=== PATIENT | male | born 1955 | race Two or more races ===

== ENCOUNTER 2018-11-14 14:25 | Emergency (ER) | payer OTHER ==
[~2018-11-14] VITALS: Ht 170.2 cm; Wt 99.8 kg
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
[2018-11-14] MEDS ORDERED: Methocarbamol 500mg tab ORAL ONE (15:30)
[2018-11-14] MEDS ORDERED: Ketorolac 30mg Inj IM ONE (15:30)
[2018-11-14 15:33] VITALS: BP 136/90
[2018-11-14] MEDS ORDERED: ROBAXIN500 MG PO (17:09)
[2018-11-14] MEDS ORDERED: LIDOCAINE700 M1 TP (17:09)
[2018-11-14] MEDS ORDERED: IBUPROFEN600 MG ORAL (17:09)
[2018-11-14 17:12] VITALS: BP 132/87
--- NOTE | 2018-11-14 17:12 | NUR ---
ER DISCHARGE NOTE: Patient is cleared to be discharged per ERMD, pt is aox4, on room air, with stable vital signs. pt was given dc and prescription instructions, pt was able to verbalize understanding, pt id band removed. pt is able to ambulate with steady gait. pt took all belongings.
== END 2018-11-14 17:12 | disposition home or self-care (01) ==
LOC: EMR 15:20
DX: S13.9XXA Sprain of joints and ligaments of unspecified parts of neck, initial encounter (principal); V44.5XXA Car driver injured in collision with heavy transport vehicle or bus in traffic accident, initial encounter; Y92.410 Unspecified street and highway as the place of occurrence of the external cause
CPT/HCPCS: 72125; 96372; 99284; J1885